=== PATIENT | male | born 1965 | race Caucasian/White ===

== ENCOUNTER 2020-09-08 18:15 | Emergency (ER) | payer OTHER ==
[~2020-09-08] VITALS: Ht 180.3 cm; Wt 145.2 kg
[~2020-09-08 18:15] MED LIST: AMBIEN 5 MG TABL5 M1 PO; FLOMAX PO; FLOMAX0.4 MG PO; IBUPROFEN 600600 M1 PO; NAPROSYN500 MG PO; NORCO 5-325 TA1 EACH PO; ONDANSETRON HCL4 M2 PO; PERCOCET 5-3251 EACH PO; ZOCOR 10 MG TAB10 MG PO; ZOFRAN ODT4 MG PO
[2020-09-08 20:31] VITALS: BP 124/88
== END 2020-09-08 20:31 | disposition home or self-care (01) ==
LOC: ER 18:15
DX: S61.411A Laceration without foreign body of right hand, initial encounter (principal); Z79.899 Other long term (current) drug therapy; Z79.1 Long term (current) use of non-steroidal anti-inflammatories (NSAID); W26.8XXA Contact with other sharp object(s), not elsewhere classified, initial encounter; Y93.89 Activity, other specified; Y92.89 Other specified places as the place of occurrence of the external cause; Y99.8 Other external cause status